=== PATIENT | female | born 1990 | race Caucasian/White ===

== ENCOUNTER 2019-11-07 09:11 | Day surgery (SDC) | payer OTHER ==
[~2019-11-07 09:11] MED LIST: Bupivacaine 0.5%/EPINEPHrine 1:200,000 50 ML MDV ONE
[2019-11-07] MEDS ORDERED: Dextrose 5%-Lactated Ringers 1,000 ML IV SCH (09:45)
[2019-11-07] MEDS ORDERED: Acetaminophen 500 MG Tab PO ONE (09:45)
[2019-11-07] MEDS ORDERED: Ketamine 500 MG/5 ML MDV IV SCH (10:30)
[2019-11-07] MEDS ORDERED: Ketamine 50 MG in Sodium Chloride 0.9% 49.5 ML IV SCH (10:30)
[2019-11-07] MEDS: cefOXitin 2 GM in Sodium Chloride 0.9% 50 ML IV ONE ×2 (11:40→15:11)
[2019-11-07] MEDS ORDERED: fentaNYL 250 MCG/5 ML SDV ONE ×2 (11:49→12:16)
[2019-11-07] MEDS ORDERED: Ondansetron 4 MG/2 ML SDV ONE (11:50)
[2019-11-07] MEDS ORDERED: Propofol 200 MG/20 ML SDV ONE (11:50)
[2019-11-07] MEDS ORDERED: Rocuronium 50 MG/5 ML Vial ONE (11:50)
[2019-11-07] MEDS ORDERED: Neostigmine Methylsulfate 1 MG/ML 5 ML Syringe ONE (11:50)
[2019-11-07] MEDS ORDERED: Dexamethasone 4 MG/ML SDV ONE (11:50)
[2019-11-07] MEDS ORDERED: Glycopyrrolate 0.2 MG/ML 5 ML MDV ONE (11:50)
[2019-11-07] MEDS ORDERED: Lactated Ringers 1,000 ML ONE (12:30)
[2019-11-07] MEDS ORDERED: hydrOXYzine HCL 100 MG/2 ML SDV IM ONE (13:05)
[2019-11-07] MEDS ORDERED: fentaNYL 100 MCG/2 ML SDV IVPUSH ONE (13:05)
[2019-11-07] MEDS ORDERED: HYDROmorphone 1 MG/ML Syringe IV PRN (14:20)
[2019-11-07] MEDS ORDERED: Ondansetron 4 MG/2 ML SDV IVPUSH PRN (14:22)
[2019-11-07] MEDS ORDERED: Pantoprazole 40 MG Vial IVPUSH SCH (15:00)
[2019-11-07] MEDS: HYDROmorphone 0.5 MG/0.5 ML Syringe IVPUSH PRN (15:37)
[2019-11-07] MEDS: MVI, Adult with Vitamin K 10 ML, Chromium/Copper/Mang/Selen/Zn 1 ML in Dextrose 5%-Lact... IV SCH ×3 (16:50)
[2019-11-07] MEDS: cefOXitin 2 GM in Sodium Chloride 0.9% 50 ML IV SCH ×2 (16:50→23:04)
[2019-11-07] MEDS: Acetaminophen/HYDROcodone 325-5 MG Tab PO PRN ×2 (19:11→23:08)
[2019-11-08] MEDS: MVI, Adult with Vitamin K 10 ML, Chromium/Copper/Mang/Selen/Zn 1 ML in Dextrose 5%-Lact... IV SCH ×3 (01:35)
[2019-11-08] MEDS: HYDROmorphone 0.5 MG/0.5 ML Syringe IVPUSH PRN (01:43)
[2019-11-08] MEDS: cefOXitin 2 GM in Sodium Chloride 0.9% 50 ML IV SCH (05:06)
[2019-11-08] MEDS ORDERED: Dextrose 5%-Lactated Ringers 1,000 ML IV SCH (07:00)
[2019-11-08 07:29] VITALS: BP 119/79; PULSE 76
[2019-11-08] MEDS: Acetaminophen/HYDROcodone 325-5 MG Tab PO PRN ×2 (07:48→12:06)
--- NOTE | 2019-11-08 13:05 | DISCH ---
ADMISSION DIAGNOSES: 1. Cholecystitis and cholelithiasis. 2. Status post Prosper-en-Y gastric bypass surgery. 3. Unspecified surgical malabsorption. 4. B12 deficiency. 5. Vitamin D deficiency. DISCHARGE DIAGNOSES: Diagnostic laparoscopy with: 1. Cholecystectomy. 2. Repair of umbilical hernia for subacute and chronic cholecystitis and cholelithiasis and incarcerated umbilical hernia. HISTORY: Emerita Richardson is a 29-year-old female who presented initially to [place], [place], with abdominal pain and elevated liver function tests. She was recommended to see her bariatric surgeon. After preoperative evaluation and discussion of possible risks and possible complications, she wished to proceed with surgical procedure. HOSPITAL COURSE: Emerita had her surgery on 11/07/2019. She had no operative complications. On postoperative day #1, her pain was well controlled. Her activity was good. She tolerated her diet well, and she was able to be discharged to home. PHYSICAL EXAMINATION: GENERAL: Emerita Richardson is a 29-year-old female. VITAL SIGNS: Height is 5 feet 5 inches, weight is 216 pounds, BMI is 35.9. TPR is 98.3, 76, 16, blood pressure 119/79. HEENT: Negative. NECK: Supple. HEART: Regular rate and rhythm. LUNGS: Clear. ABDOMEN: Dressings dry and intact. Abdominal binder is on. EXTREMITIES: Without peripheral edema. DISPOSITION: Discharged to home. CONDITION: Stable and improving. FOLLOWUP APPOINTMENTS: Teresa Villalba PA-C at [facility], [place] on 11/14/2019 at 11:00 a.m. NEW PRESCRIPTIONS: 1. [place] 5/325 mg 1 q.6 hours p.r.n. pain, #28. 2. Continue potassium chloride 20 mEq, but take 1 daily until prescription is gone. 3. To resume home medications: a. Calcium with vitamin D 1 tablet twice daily. b. Vitamin D3 3000 International Units oral daily. c. Vitamin B12 1000 mcg oral daily. d. Folic acid 1 mg oral daily. e. Multivitamin 1 twice daily. f. Thiamine 100 mg oral daily. g. Triamcinolone acetonide 0.1% cream 1 applicator 3 times daily. DIET: Usual diet as tolerated. Drink 8 to 10 glasses a day. OTHER ACTIVITY: No lifting greater than 10 pounds for 2 weeks. Driving: Do not drive within 6 hours of taking narcotic pain medication. Shower/bathing: May shower. No tub bathing or swimming until incisions are healed. DISCHARGE INSTRUCTIONS: Notify provider if any fever, increased pain, nausea, or vomiting. Wound incision care after discharge. Keep site clean and dry. Wear abdominal binder for 2 weeks and then as tolerated. SPECIAL INSTRUCTIONS: Use incentive spirometer 10 times every hour while awake.
--- NOTE | 2019-11-09 08:14 | OR ---
DATE OF PROCEDURE: 11/07/2019 SURGEON: Frank Canseco MD PREOPERATIVE DIAGNOSES: Subacute and chronic cholecystitis and cholelithiasis. POSTOPERATIVE DIAGNOSES: 1. Subacute and chronic cholecystitis and cholelithiasis. 2. Incarcerated umbilical hernia. OPERATIVE PROCEDURES: Diagnostic laparoscopy with: 1. Cholecystectomy (56779). 2. Repair of incarcerated umbilical hernia (76445). ANESTHESIA: General. COMPATIBILITY TEST ENGINEER: Teresa Villalba PA-C. INDICATIONS FOR PROCEDURE: This is a 29-year-old female presenting with a picture of subacute cholecystitis with imaging being consistent with nonfilling of the gallbladder on HIDA scan. She also has mildly elevated bilirubin. It was 2.1 yesterday and 1.6 today, all consistent with some acute or subacute inflammation of the gallbladder. The plan is to proceed with a laparoscopy, possible laparotomy, cholecystectomy. Potential risks of the procedure including bleeding, infection, injury to the underlying viscera, possible migration of stones into the common bile duct requiring additional procedures for correction, as well as the remote possibility of persistent symptoms postoperatively, and the patient wishes to proceed. DETAILS OF PROCEDURE: The patient was taken to the operating room and placed in a supine position. After general endotracheal anesthesia was induced, the abdomen was prepped and draped. On examination, the patient was noted to have an umbilical hernia. This contained roughly a grape-sized area of preperitoneal fat, which was not reducible. An incision was made overlying this area. Initially, the peritoneal cavity was inflated with Veress needle passed through the hernia site. This then allowed dissection of the preperitoneal fat, which, along with peritoneum, was then reflected back into the peritoneal cavity and a 12-mm trocar placed at that level. Additional 12 mm trocars were placed in the epigastrium and a 5-mm trocar in the right subcostal area. Gallbladder was noted to be quite edematous and distended. The gallbladder was then retracted anterolaterally and with Harmonic scalpel, dissection began on the gallbladder neck, continued around the gallbladder neck/cystic duct junction. Once that area was well delineated, along with adjacent cystic artery, both structures were clipped 3 times proximally and once distally and divided. The gallbladder was then dissected off the gallbladder bed using Harmonic scalpel and delivered through the upper midline incision. It contained some small stones and sludge within it. At this point, the gallbladder fossa was inspected. No bile leaks or bleeding were seen. It was felt, given the amount of inflammation, that a drain be placed. A Franc-Borja drain was then placed through the right lateral trocar site and positioned into the gallbladder bed. Camera was then brought up to the umbilical cord, and using the laparoscopic suture passer, the umbilical hernia was repaired with a series of 0 Vicryl stitches. Once these were in place, the peritoneal cavity was deflated. The epigastric site was closed with 0 Vicryl at fascia level, and the umbilical hernia sutures were then tied. The skin at the incision was closed with 4-0 Vicryl skin stitch. The patient received bilateral transversus abdominis plane blocks, along with some local anesthetic into the incisions. She was taken to the recovery room in satisfactory condition. There were no evident complications. Physician training and development assistant, Teresa Villalba, played an essential role in assisting in this case, helping to position the patient, retract structures as needed, as well as suturing and cutting sutures when indicated. Her presence improved patient safety and decreased the operative time. Frank Canseco MD /[id number]
== END 2019-11-08 12:13 | disposition home or self-care (01) ==
LOC: JP.SDS 09:11 → JP.MS 13:00 → JP.SDS 11-08 12:13
PROVIDERS: ATTEND Surgery
DX: K80.12 Calculus of gallbladder with acute and chronic cholecystitis without obstruction (principal); K42.0 Umbilical hernia with obstruction, without gangrene; K91.2 Postsurgical malabsorption, not elsewhere classified; E53.8 Deficiency of other specified B group vitamins; E55.9 Vitamin D deficiency, unspecified; E60 Dietary zinc deficiency; Z98.84 Bariatric surgery status; Z79.899 Other long term (current) drug therapy; Z91.040 Latex allergy status
CPT/HCPCS: 36415; 47562; 80053; 81025; 82247; 84075; 85025; 88304; A9270; C9113; J0171; J0694; J1100; J1170; J2405; J2704; J2710; J2795; J3010; J3410; J3490; J7050; J7120; J7121